=== PATIENT | male | born 1955 | race Caucasian/White ===

== ENCOUNTER 2017-10-24 10:22 | Emergency (ER) | payer BC, SELFPAY ==
[2017-10-24 10:31] VITALS: BP 136/84; PULSE 63; RESP 16; TEMP 37; O2SAT 96
--- NOTE | 2017-10-24 10:38 | DI.RPTCT_ITS ---
SYMPTOM/DIAGNOSIS: FALL, LOWER BACK PAIN LUMBOSACRAL SPINE CT 10/24 CT examination of the lumbosacral spine was performed utilizing multislice imaging and multiplanar reconstruction. No fracture identified. Mild hypertrophic degenerative chanaes of he facet joints and vertebral end plates are noted throughout. No spondylolysis or spondylolisthesis. There appear to be moderate disc bulges at L4-5 and L5-S1 No definite disc herniation seen by CT criteria, MR would be more sensitive in detecting small disc herniations. Incidental note is made of bilateral renal nonobstructing calculi. Abdominal aorta is of normal diameter. No retroperitoneal adenopathy seen. CONCLUSION: No evidence of lumbar spine fracture. Bilateral nonobstructing renal calculi noted
--- NOTE | 2017-10-24 10:38 | ED.GENADUL ---
Disposition Clinical Impression: Acute low back pain due to trauma Disposition: HOME Condition: Stable Instructions: Contusion in Adults (ED) Additional Instructions: Your cat scan did not show any broken bones you can take 1000mg tylenol and 600mg ibuprofen every 6 hours for pain as needed if you have severe worsening of pain, or new pain such as chest pain or difficulty breathing return to the emergency department. If the pain continues next week see your primary care provider Medical Decision Making - Radiology Data Radiology results: report reviewed, image reviewed - Medical Decision Making pt here after a fall 8 days ago with continued midline lower back pain, will obtain imaging to eval for fx. Has no abdominal tenderness or any other pain elsewhere requiring imaging. The pain started after a fall, has no fevers, chills, ivdu, and no saddle anesthesia so doubt sea or cauda equina or osteo pt remains stable without any new symptoms. CT shows no acute fractures on my read or read per Dr. Morse. Will d/c home, advised f/u with pcp and return precautions given - Differential Diagnosis contusion, sprain, fx History of Present Illness - General Chief complaint: Nk/Back Pain Stated complaint: LOWER BACK PAIN Time Seen by Provider: 10/24/17 10:34 Source: patient Mode of arrival: ambulatory Limitations: no limitations - History of Present Illness Initial comments: 61 yo male comes in with lower back pain. 8 days ago he was on a ladder about 8 feet up and fell backwards landing on his back. Denies any loc, has had lower back pain since then so came here for an eval. Denies headache, neck pain even on rom and n ochest pain or sob. He has midline lumbar pain without stepoffs, no cva tenderness, and no abdominal tenderness, full rom of the extremities without pain and ambulating with normal gait and no saddle anesthesia and denies urinary retention Complaint: lower back pain Onset/Timin -: days(s) Location: back Improves with: none Worsens with: none Associated Symptoms: denies other symptoms - Related Data Niacin 2 tab PO DAILY tab 06/26/12 Diclofenac Sodium 75 mg PO BID #180 tab-cap 12/25/16 Sildenafil [Viagra] 1 tab PO PRN #6 tab 12/25/16 Minocycline HCl 50 mg PO BID #60 tab-cap 08/09/17 Allergies Allergy/AdvReac Type Severity Reaction Status Date / Time No Known Allergies Allergy Unverified 10/24/17 11:11 Review of Systems Constitutional: denies: chills, fever Respiratory: denies: shortness of breath Cardiovascular: denies: chest pain Gastrointestinal: denies: abdominal pain, nausea, vomiting Musculoskeletal: back pain Skin: denies: rash Comment: All other systems reviewed and negative Past Medical History - Past Medical History Medical history: hyperlipidemia - Social History Alcohol use: none Drug use: none General Exam - General Limitations: no limitations General appearance: alert, in no apparent distress - Head Head exam: Present: atraumatic, normocephalic - Eye Eye exam: Present: normal apperance - ENT ENT exam: Present: mucous membranes moist - Neck Neck exam: Present: normal inspection, full ROM. Absent: tenderness - Respiratory Respiratory exam: Absent: respiratory distress - Cardiovascular Cardiovascular Exam: Present: regular rate - GI/Abdominal GI/Abdominal exam: Present: soft. Absent: distended, tenderness, guarding, rebound, rigid - Extremities Exam Extremities exam: Present: full ROM. Absent: pedal edema, calf tenderness - Back Exam Back exam: Present: normal inspection, vertebral tenderness. Absent: CVA tenderness (R), CVA tenderness (L) - Neurological Exam Neurological exam: Present: alert, oriented X3, normal gait. Absent: motor sensory deficit - Psychiatric Psychiatric exam: Present: normal affect - Skin Skin exam: Present: warm Course Vital Signs - 24 hr 10/24/17 10:31 Temperature 98.6 F Pulse 63 Respiratory 16 Rate Blood Pressure 136/84 Pulse Oximetry 96
[2017-10-24 12:55] VITALS: BP 115/76; PULSE 64; RESP 16; TEMP 36.7; O2SAT 96
== END 2017-10-24 12:58 | disposition home or self-care (01) ==
PROVIDERS: Emergency Provider Emergency Medicine; PCP Family Medicine
DX: M54.5 Low back pain (principal); W11.XXXA Fall on and from ladder, initial encounter
CPT/HCPCS: 99284; 72131

== ENCOUNTER 2018-01-29 16:25 | Emergency (ER) | payer BC, SELFPAY ==
[2018-01-29 16:29] VITALS: BP 156/88; PULSE 72; RESP 16; TEMP 36.4; O2SAT 97
--- NOTE | 2018-01-29 16:51 | W.ED.GENAD ---
Discharge Plan Disposition Patient Disposition: HOME Condition: Good Discharge Details Chief Complaint: Laceration Clinical Impression: Laceration of hand, left Primary Care Provider: Avi Puga ED Provider: Jeffrey Fernandez [place] Meds and New Rx's Prescriptions: No Action niacin 50 MG tablet 2 tab PO DAILY RF: 0 sildenafil [Viagra] 100 MG tablet 1 tab PO PRN Qty: 6 RF: 3 diclofenac sodium 75 MG tablet,delayed release (DR/EC) 75 mg PO BID Qty: 180 RF: 3 minocycline 50 mg capsule 50 mg PO BID Qty: 60 RF: 2 Discharge Instructions Instructions: Laceration (ED) Additional Instructions: have the sutures removedin 7-10 days if redness spreads away from the wound, you have yellow/white discharge for wound or severe pain return to the emergency department Medical Decision Making pt was using a saw and sustained a laceration to left palm, denies loc or falls. HAs 2cm laceration to mid palm. Intact sensation and full rom of the wrist and fingers so doubt tendon injury. Will close with sutures, up date tetanus and d/c home Differential Diagnosis laceration, abrasion, contusion HPI General Mode of arrival: ambulatory. Date/Time Provider Initiated Documentation: 01/29/18 16:28. Limitations to Documentation: no limitations. Information obtained by: patient. History of Present Illness 62 year old M presents to the emergency department with the chief complaint of left palm laceration, described as moderate, Quality is described as aching, and is localized to the left and upper extremity. Patient reports no radiation. Patient started experiencing this hour(s) (1) and it has been constant. No relieving factors improve symptom(s), No exacerbating factors reported . Patient notes no other symptoms.. Patient did receive the following treatments prior to arrival, none Related Data Home Medications Medication Instructions Recorded Confirmed niacin 2 tab PO DAILY tab 06/26/12 01/29/18 diclofenac sodium 75 mg PO BID #180 tab-cap 12/25/16 sildenafil [Viagra] 1 tab PO PRN #6 tab 12/25/16 01/29/18 minocycline 50 mg PO BID #60 tab-cap 01/02/18 01/29/18 Previous Rx's Medication Instructions Recorded diclofenac sodium 75 mg PO BID #180 tab-cap 12/25/16 sildenafil [Viagra] 1 tab PO PRN #6 tab 12/25/16 minocycline 50 mg PO BID #60 tab-cap 01/02/18 Allergies Allergy/AdvReac Type Severity Reaction Status Date / Time No Known Allergies Allergy Unverified 01/29/18 16:31 General Stated Complaint: Laceration FARHANA: 4 Review of Systems Review of Systems All systems reviewed & are unremarkable except as noted in HPI and below Constitutional Denies chills, Denies fever(s) and Denies weakness Eyes Denies loss of vision ENT Denies change in voice Cardiovascular Denies chest pain and Denies dyspnea Respiratory Denies dyspnea Gastrointestinal Denies abdominal pain, Denies nausea and Denies vomiting Integumentary/Breasts Denies rash Neurologic Denies loss of vision and Denies weakness PFSH Family History Mother Personal history of malignant neoplasm Father Heart disease Sister No problems noted. Brother No problems noted. Grandmother Personal history of malignant neoplasm Medical History Acne Erectile dysfunction Social History Smoking/Tobacco Use Status: Former Tobacco Use Surgical History Colonoscopy - IV Sedation (01/21/16) Meniscectomy (~2008) Exam Const General: no acute distress Orientation: alert [facility] Head: normal to inspection Ears: external ears normal General nose exam: external nose normal Mouth: moist mucous membranes Eyes General: appearance normal, both eyes and all related structures Neck Neck: normal visual inspection Resp Effort & Inspection: normal respiratory effort and able to speak in complete sentences Cardio Rate: regular rate Skin General skin exam: no rashes or lesions noted Neuro General: alert and oriented x3 Extrem General: full ROM and normal capillary refill Psych Mental Status: mental status grossly normal Course Vital Signs Temperature 36.4 C L 01/29/18 16:29 Pulse 72 01/29/18 16:29 Respiratory Rate 16 01/29/18 16:29 Blood Pressure 156/88 H 01/29/18 16:29 Pulse Oximetry 97 01/29/18 16:29 Temperature 36.4 C L 01/29/18 16:29 Temperature Source Temporal Artery Scan 01/29/18 16:29 Pulse 72 01/29/18 16:29 Respiratory Rate 16 01/29/18 16:29 Respiratory Effort 01/29/18 16:33 Blood Pressure 156/88 H 01/29/18 16:29 Pulse Oximetry 97 01/29/18 16:29 Oxygen Delivery Method Room Air 01/29/18 16:29 Oxygen Flow Rate 0 01/29/18 16:29 Procedures Laceration Laceration 1: Site: upper extremity and hand Side (If applicable): left Size (cm): 2 Description: linear Depth: simple, single layer Local Anesthetic: Lidocaine 1% Amount of anesthesia used (mL): 6 Pre-repair: wound explored and irrigated extensively Skin layer closed with: vicryl Size (cm): 5-0 Number of sutures: 4 Technique: simple, interrupted
== END 2018-01-29 17:16 | disposition home or self-care (01) ==
LOC: ER 17:14
PROVIDERS: Emergency Provider Emergency Medicine; PCP Family Medicine
DX: S61.412A Laceration without foreign body of left hand, initial encounter (principal); W27.0XXA Contact with workbench tool, initial encounter
CPT/HCPCS: 12001; 90471

== ENCOUNTER 2019-07-11 08:40 | Outpatient (CLI) | payer BC, SELFPAY ==
[2019-07-12 13:59] LABS: COVID-19 RT-PCR UVMMC Result Negative (Negative)
== END 2019-07-11 09:00 ==
PROVIDERS: PCP Family Medicine; Visit Provider Family Medicine
DX: R05 Cough (principal)
CPT/HCPCS: U0003

== ENCOUNTER 2020-02-26 09:10 | Outpatient (CLI) | payer BC, SELFPAY ==
--- NOTE | 2020-02-26 08:30 | DI.RAD_ITS ---
EXAM: XR TIB/FIB LT CLINICAL HISTORY: L lower leg pain. TECHNIQUE: 2D digital imaging was performed. COMPARISON: No exams were available for comparison FINDINGS: No evidence of fracture. No significant osseous lesions. No radiopaque body. Talar dome appears un remarkable. IMPRESSION: No significant findings. DATA REPOSITORY: RADIATION DOSE DELIVERED:
== END 2020-02-26 09:30 ==
PROVIDERS: PCP Family Medicine; Referring Provider Family Medicine; Visit Provider Physician Assistant
DX: M79.662 Pain in left lower leg (principal)
CPT/HCPCS: 73590

== ENCOUNTER 2020-03-17 03:08 | Outpatient (CLI) | payer BC, SELFPAY ==
--- NOTE | 2020-03-17 06:45 | DI.MRI_ITS ---
EXAM: MR LOWER EXTREMITY LT WO CLINICAL HISTORY: LOWER LEG PAIN,FASCIAL DEFECT,M62.9 TECHNIQUE: Multiplanar multisequence MRI was performed. COMPARISON: CR XR TIB/FIB LT from 02/26/2020 FINDINGS: MARROW:There is mild subcutaneous signal abnormality related to the tissues just anterior to the tibi al cortex in the upper-mid diaphysis region. There is a no evidence of intramedullary marrow edema n o distinct fracture line. There are no significant osseous lesions. There is no abnormal intraosseous signal in the visualized fibula. MUSCLES: There is no evidence of abnormal signal nor mass in the visualized muscles. EXTRAMUSCULAR SOFT TISSUES: No abnormal signal, mass, or fluid collection. OTHER: None. IMPRESSION: 1. As above. Findings are consistent with tibial stress reaction. Correlation with any clinical fin dings of ???moreno splints??? recommended. There is, however, no evidence of actual stress fracture. DATA REPOSITORY:
== END 2020-03-17 03:28 ==
PROVIDERS: PCP Family Medicine; Visit Provider Student in an Organized Health Care Education/Training Program
DX: M79.662 Pain in left lower leg (principal); M62.89 Other specified disorders of muscle
CPT/HCPCS: 73718

== ENCOUNTER 2020-04-21 12:32 | Day surgery (SDC) | payer BC, SELFPAY ==
[2020-04-21 12:49] VITALS: BP 135/86; PULSE 71; RESP 16; TEMP 36.5; O2SAT 96
[2020-04-21] MEDS: Lactated Ringers 1,000 ML 80 ML IV (13:12)
--- NOTE | 2020-04-21 13:15 | PDOC.DSDIS_ITS ---
Discharge Plan Disposition Patient Disposition: HOME Condition: Good Discharge Details Reason For Visit: Fasciotomy left lower leg Attending Provider: Triston Burden Primary Care Provider: Avi Puga Home Meds and New Rx's Prescriptions: New ibuprofen 600 mg tablet 600 mg PO TID PRN (Reason: pain) Qty: 30 RF: 0 acetaminophen 500 mg capsule 1,000 mg PO Q8H PRN PRNQty: 90 RF: 0 Continued minocycline 50 mg capsule 50 mg PO BID Qty: 60 RF: 6 Discontinued acetaminophen [Tylenol Extra Strength] 500 mg tablet 1,500 mg PO HS PRNRF: 0 diclofenac sodium 75 mg tablet,delayed release (DR/EC) 75 mg PO BID Qty: 180 RF: 3 Discharge Instructions Additional Instructions: Fasciotomy Discharge Instructions Activity: You may bear weight as tolerated, using crutches only for support/c omfort. You should apply ice to help with swelling and elevate when possible (especially in the first few days). Dressings: The dressing may come down after one week. You may shower after 48 hours. Recommend covering the dressing with cling wrap. Medications: - Rarely does this require any stronger pain medications. - Recommend to take up to 1000mg of Acetaminophen (Tylenol) and 600mg of Ibuprofen (Advil) every 8 hours as needed. These larger strength tablets were called in but you also may use [id number]. Follow-up: 10-14 days Referrals: Triston Burden MD [ [facility] STAFF PHYSICIAN] - Equipment/Supplies: Partial Weight Bearing Crutches Activity:: Activity as Tolerated Shower/Bathe:: 48 hours and Cover Diet:: As Tolerated Discharge Orders Discharge Orders: Discharge Order (Routine); Ordered 04/21/20 Ordered By: Sohan Mata DS: Diagnosis Discharge Diagnosis (1) Fascial defect: Status: Acute
[2020-04-21] MEDS: ceFAZolin 2 GM/50 ML BAG IVPB (14:41)
[2020-04-21] MEDS: EPINEPHrine 1 MG/ML AMP pres-free (14:50)
[2020-04-21] MEDS: Bupivacaine 0.25% Pres-Free 30 ML VIAL (14:50)
[2020-04-21 15:45] VITALS: BP 116/74; PULSE 66; RESP 16; TEMP 36.3; O2SAT 96
--- NOTE | 2020-04-22 07:44 | ROE_ITS ---
Date of service: 04/22/20 Time of Service: 14:44 Operative Note Operative Note DATE OF PROCEDURE: 04/22/20 PRE-OP DIAGNOSIS: Left Leg Traumatic Fascial Defect POST-OP DIAGNOSIS: same PROCEDURE: Left Leg Anterior Compartment Fasciotomy SURGEON: Triston Burden JET DYEING MACHINE OPERATOR: Lina Kaplan ANESTHESIA: MAC ESTIMATED BLOOD LOSS: 0 PATHOLOGY: none sent TOURNIQUET TIME: 0 COMPLICATIONS: None Patient was transported to: same day Patient's condition: stable Indications: Sathya is a 64yo male who has had some chronic pain and deformity to the anterior left leg for years since a traumatic injury with a log on his left leg. He has tried a host of treatment options but continues to have swelling and pain. Clinical exam and MRI confirmed a fascial injury and bulging anterior compartment within those defects. Given this finding, I offered a fasciotomy to fully release the compartment, rather than attempt a fascial closure due to the increased complication rate of closure versus release. I discussed the risks of the procedure to include bleeding, pain, stiffness, deformity or increase in muscle bulging, damage to nerves and vessels, blood clot. Despite these risks, he elected to proceed. Findings: There was a large defect of the anterior compartment with some pseudofascia within this defect but two complete defects within the pseudofascia. A complete anterior compartment fasciotomy was performed. Procedure Description: Sathya was greeted in the preoperative holding area. His identity was confirmed and the correct side was identified and marked. The history and physical was updated and the consent was reviewed with the patient was signed. Braden was taken back to the operating room and then placed in the supine position. The left leg was prepped with Chloraprep and draped in a standard fashion. Prophylactic antiobiotics in the form of Cefazolin were administered. A timeout was performed for safe surgery. The fascial defect was palpable and marked on the skin and then the proposed incision was marked. The area was anesthetized with 0.5% Bupivacaine with Epinephrine. The skin was then incised sharply through the skin and subcutaneous tissues. The anterior fascia was identified. The defect was palpated and measured about 7cm in total length and by about 2.5cm away from the tibia at its greatest width. Within this defect there was a thinner pseudo-fascia which was obviously much thinner than the anterior compartment fascia. Within this fascia there were two complete defects about 1cm in diameter. There was obvious muscle herniating through these defects. I then bluntly dissected on top of the fascia, just lateral to the tibial spine. Using a freer elevator, I pushed the muscle away from the fascia and had visualization of both sides of the fascia starting at the fascia herniation and moving distally. I was able to use a [place] scissor to release the anterior compartment to the distal 1/3 of the compartment. This was then repeated moving proximally with the same visualization of both sides of the fascia. This was released all the way to the proximal tibial flare. The muscle was viable and showed no signs of disease or atrophy. Some of the deeper tissues were injected with additional Bupivacaine. The wound was then thoroughly irrigated. The deep tissue was closed with 3-0 Vicryl. The skin and subcutaneous tissue was closed with a running subcuticular 3-0 Monocryl. The wound was dressed with a Mepilex dressing. He tolerated the procedure well and was transferred back to the Same Day area in a stable condition.
== END 2020-04-21 16:05 | disposition home or self-care (01) ==
PROVIDERS: PCP Family Medicine; Visit Provider Student in an Organized Health Care Education/Training Program
PROC: (CPT 27600; principal; 2020-04-21 12:45)
DX: M62.89 Other specified disorders of muscle (principal); S86.29 Other injury of muscle(s) and tendon(s) of anterior muscle group at lower leg level; W23.0XXS Caught, crushed, jammed, or pinched between moving objects, sequela
CPT/HCPCS: 27600; J0171; J0690; J1885; J2001; J2250; J2405; J2704

== ENCOUNTER 2021-04-05 02:48 | Outpatient (CLI) | payer BC, SELFPAY ==
--- NOTE | 2021-04-05 06:45 | DI.RAD_ITS ---
Exam(s) XR SHOULDER RT COMPLETE 2+V EXAM: XR SHOULDER RT COMPLETE 2+V CLINICAL HISTORY: right shoulder pain x 2 yrs,m25.511. TECHNIQUE: 2D digital imaging was performed of the right shoulder. Six images were obtained. AP, G rashey, Y-view and axillary views were obtained. COMPARISON: No exams were available for comparison FINDINGS: BONES: No acute fracture is present. No bony destructive lesion is seen. JOINTS: No dislocation present. Mild hypertrophic changes are seen at the acromioclavicular joint. SOFT TISSUE: Tiny calcification is seen adjacent to the humeral head suspicious for calcific tendinit is. IMPRESSION: Mild degenerative changes of the right shoulder. DATA REPOSITORY: RADIATION DOSE DELIVERED:
== END 2021-04-05 03:08 ==
PROVIDERS: PCP Family Medicine; Visit Provider Family Medicine
DX: M25.511 Pain in right shoulder (principal); M19.011 Primary osteoarthritis, right shoulder
CPT/HCPCS: 73030

== ENCOUNTER 2021-04-05 13:29 | Outpatient (CLI) | payer BC, SELFPAY ==
[2021-04-05] MEDS: Albuterol HFA 18 GM 200 PUFF INH IH (14:29)
[2021-04-05] MEDS: Inhaler, Assist Device 1 EACH MC (14:30)
--- NOTE | 2021-04-06 10:53 | W.PFT ---
Date of service: 04/05/21 Time of Service: 12:58 Pulmonary Function Test Result Requesting Provider Jeri Padilla Indications: Chronic cough Interpretation Spirometry: There is mild airflow limitation. There is no significant bronchodilator response. Lung Volumes: The lung volumes are normal, with the exception of some hyperinlation. Diffusion Capacity: The diffusing capacity is normal. Airway Pressure: Normal airways resistance Impression Mild airflow obstruction with hyperinflation and a normal diffusion. This may represent chronic bronchitis (COPD) or uncontrolled asthma in the correct clinical setting. Clinical Correlation therefore is recommended.
== END 2021-04-05 13:30 | disposition home or self-care (01) ==
LOC: RT 13:29
PROVIDERS: PCP Family Medicine; Visit Provider Family Medicine
DX: R05.3 Chronic cough (principal); Z87.891 Personal history of nicotine dependence; R94.2 Abnormal results of pulmonary function studies; Z77.120 Contact with and (suspected) exposure to mold (toxic)
CPT/HCPCS: 94060; 94726; 94729

== ENCOUNTER 2021-08-02 09:48 | Outpatient (CLI) | payer BC, SELFPAY ==
--- NOTE | 2021-08-02 09:30 | DI.RAD_ITS ---
Exam(s) XR SHOULDER LT COMPLETE 2+V EXAM: XR SHOULDER LT COMPLETE 2+V CLINICAL HISTORY: pain TECHNIQUE: COMPARISON: CR XR SHOULDER RT COMPLETE 2+V from 04/05/2021 FINDINGS: Two views were obtained. The cartilaginous joint space of the glenohumeral joint appears fairly well maintained. Mild to moderate marginal osteophyte formation of the glenoid and humeral head noted. There are also mild hypertrophic degenerative changes of the AC joint. There are soft tissue calcifications seen adjacent to the metaphyseal diaphyseal junction of the ashwin deanne suggestive of calcific peritendinitis. IMPRESSION: RADIATION DOSE DELIVERED: Total DLP
== END 2021-08-02 09:49 | disposition home or self-care (01) ==
LOC: DIORS 09:48
PROVIDERS: PCP Family Medicine; Referring Provider Family Medicine; Visit Provider Physician Assistant Surgical
DX: M25.512 Pain in left shoulder; M19.012 Primary osteoarthritis, left shoulder; M75.32 Calcific tendinitis of left shoulder
CPT/HCPCS: 73030

== ENCOUNTER 2022-02-08 17:27 | Emergency (ER) | payer BC, SELFPAY ==
--- NOTE | 2022-02-08 17:30 | DI.CT_ITS ---
Exam(s) CT RENAL COLIC WO EXAM: CT RENAL COLIC WO INDICATION: right flank pain, r/o stone. COMPARISON: No exams were available for comparison TECHNIQUE: CT examination was performed without contrast administration. FINDINGS: Images obtained through the lung bases are unremarkable. Visualized portions of the liver and splee n appear intact. Visualized portions of the pancreas are unremarkable. Gallbladder and bile ducts are CT normal. Abdominal aorta is of normal diameter. No significant abdominal wall hernia. No significant abdominal or pelvic adenopathy. Small left adrenal adenoma noted, fatty attenuation period. The kidneys are normal in size and shape. There are small bilateral renal calculi which are nonobstr ucting period. No ureteral dilatation or calcification identified. Urinary bladder is unremarkable in appearance. IMPRESSION: Small bilateral nonobstructing renal calculi noted. No evidence of ureteral calcification or urinary tract obstruction.. RADIATION DOSE DELIVERED: 1,094.03mGy.cm DLP 1,094.03mGy.cm Total DLP DATA REPOSITORY: All CT scans at this facility are submitted to the National Radiology Data Registry (NRDR) Dose Index Registry (DIR) with the [employer] ([employer]). RADIATION OPTIMIZATION: All CT scans at this facility use at least one of these dose optimization te chniques: automated exposure control; mA and/or kV adjustment per patient size (includes targeted exa ms where dose is matched to clinical indication); or iterative reconstruction.
[2022-02-08 17:34] VITALS: BP 176/86; PULSE 80; RESP 20; TEMP 37.1; O2SAT 97
--- NOTE | 2022-02-08 17:41 | W.ED.GENAD ---
Discharge Plan Disposition Patient Disposition: Home Condition: Good Discharge Details Clinical Impression: Acute right flank pain, Hematuria Primary Care Provider: Jeri Padilla ED Provider: Yannick Olsen Home Meds and New Rx's Prescriptions: New tamsulosin [Flomax] 0.4 mg capsule 0.4 mg PO DAILY Qty: 5 0RF No Action budesonide-formoterol [Symbicort] 80-4.5 mcg/actuation HFA aerosol inhaler 2 puff inhalation BID Qty: 10 12RF diclofenac sodium [Voltaren Arthritis Pain] 1 % gel 4 g topical QID PRN (Reason: pain) Qty: 100 4RF Rx Instructions: Apply to affected area four times per day as needed minocycline 50 mg capsule 50 mg PO BID Qty: 60 6RF trazodone 50 mg tablet 25 mg PO QHS PRN (Reason: sleep) Qty: 30 1RF ibuprofen 600 mg tablet 600 mg PO TID PRN (Reason: pain) Qty: 30 0RF acetaminophen 500 mg capsule 1,000 mg PO Q8H PRN PRNQty: 90 0RF Discharge Instructions Instructions: Kidney Stones (ED), Flank Pain (ED) Additional Instructions: At this time your work-up is very reassuring. There is a high suspicion that you have had a small kidney stone that is passed or a kidney stone that is too small to see. Please take the Flomax as directed. Please take Tylenol and Motrin as needed for pain. Please use the urine strainer to strain for your kidney stone. If you notice any worsening of your symptoms, or any new symptoms such as vomiting, diarrhea, fever, chills, shortness of breath, chest pain, numbness, weakness, or fainting , please return immediately to the emergency department for reevaluation. Please follow up with your primary care provider as soon as possible for reassessment and reevaluation. As always, it was a pleasure participating in your medical care today. Referrals: Jeri Padilla MD [Primary Care Provider] - Medical Decision Making 66-year-old male with a past medical history of arthritis, old tobacco abuse, high cholesterol, on chronic minocycline for acne presents today for evaluation of right flank pain. Patient states that initially there was epigastric and right upper quadrant pain that then radiated down to his right flank, and is now in his right lower abdomen. He describes it as an achy sensation. He denies any urinary complaints. He denies any vomiting or diarrhea. He did take Tylenol which slightly improved his symptoms. No chest pain, chest heaviness, or chest tightness. No other complaints at this time. No other modifying factors. No history of kidney stones. M demonstrates well-appearing male, no significant abdominal pain or flank or CVA tenderness on exam. No guarding or rebound. Symptoms are low in the abdomen and inconsistent with cardiac etiology. Differential is highest for urolithiasis, less likely appendicitis. We will do CT scan, rehydrate, monitor closely and reassess. Patient does not want anything for pain at this time. 7:14 PM Laboratory work-up shows a stable hemoglobin no white count, urinalysis shows 10-20 RBCs, no WBCs, negative nitrites, negative leuk esterase. Patient still feels well, mild achiness on the right flank going down to the right groin. CT scan shows no evidence of acute process of significance. He does have some kidney stones that are present though but no urolithiasis in the ureter. Patient otherwise feels stable. With no evidence of infection, pain well controlled, patient is stable for discharge. Patient will be discharged with Flomax, recommend NSAIDs at home and continued hydration. Discussed red flags which to return. I have extensively reviewed the treatment plan and discharge instructions with the patient. I have addressed all patient concerns at this time. The patient was made aware of what symptoms to monitor for that would warrant a return to the emergency department. Discussed the plan with the patient, they demonstrate verbal understanding and agreement with our assessment and plan at this time. The documentation in this chart was dictated using Kartela dictation software. Please excuse any dictation errors. FINDINGS: Liver: Fatty liver with no gross masses on noncontrast imaging. Focal fatty sparing in the liver. Gallbladder and bile ducts: No calcified stones. No ductal dilation. Pancreas: No gross pathology in the pancreas on noncontrast imaging. Spleen: No splenomegaly or focal lesions. Adrenal glands: Benign small left adrenal adenoma. Normal right adrenal gland. Kidneys and ureters: Subcentimeter nonobstructive right nephrolithiasis. Punctate nonobstructive left nephrolithiasis. Stomach and bowel: Colonic diverticulosis without diverticulitis. No gross pathology in the small bowel without IV contrast. Appendix: No evidence of appendicitis. Intraperitoneal space: No free air. No significant fluid collection. Vasculature: No abdominal aortic aneurysm. Lymph nodes: No significantly enlarged lymph nodes. Urinary bladder: Unremarkable as visualized. Reproductive: Unremarkable as visualized. Bones/joints: Degenerative changes in the spine. No acute fracture or subluxation. Soft tissues: Small fat-containing umbilical hernia. IMPRESSION: 1. Subcentimeter nonobstructive right nephrolithiasis. 2. Punctate nonobstructive left nephrolithiasis. 3. Incidental findings as described. Thank you for allowing us to participate in the care of your patient. Dictated and Authenticated by: Ml Bullard MD 02/08/2022 6:48 PM Eastern Time ([place] & [place]) Sign Out No HPI General Date/Time Provider Initiated Documentation: 02/08/22 17:32. HPI Narrative: 66-year-old male with a past medical history of arthritis, old tobacco abuse, high cholesterol, on chronic minocycline for acne presents today for evaluation of right flank pain. Patient states that initially there was epigastric and right upper quadrant pain that then radiated down to his right flank, and is now in his right lower abdomen. He describes it as an achy sensation. He denies any urinary complaints. He denies any vomiting or diarrhea. He did take Tylenol which slightly improved his symptoms. No chest pain, chest heaviness, or chest tightness. No other complaints at this time. No other modifying factors. No history of kidney stones. Related Data Home Medications Medication Instructions Recorded Confirmed acetaminophen 500 mg capsule 1,000 mg PO Q8H PRN PRN #90 caps 04/21/20 02/08/22 ibuprofen 600 mg tablet 600 mg PO TID PRN pain #30 tabs 04/21/20 02/08/22 Symbicort 80 mcg-4.5 mcg/actuation 2 puff inhalation BID #10 grams 07/01/21 02/08/22 HFA aerosol inhaler (budesonide-formoterol) diclofenac sodium 1 % topical gel 4 g topical QID PRN pain #100 grams 08/30/21 02/08/22 (Voltaren Arthritis Pain) minocycline 50 mg capsule 50 mg PO BID #60 tab-caps 10/13/21 02/08/22 trazodone 50 mg tablet 25 mg PO QHS PRN sleep #30 tabs 12/05/21 02/08/22 tamsulosin 0.4 mg capsule (Flomax) 0.4 mg PO DAILY #5 caps 02/08/22 Previous Rx's Medication Instructions Recorded acetaminophen 500 mg capsule 1,000 mg PO Q8H PRN PRN #90 caps 04/21/20 ibuprofen 600 mg tablet 600 mg PO TID PRN pain #30 tabs 04/21/20 Symbicort 80 mcg-4.5 mcg/actuation 2 puff inhalation BID #10 grams 07/01/21 HFA aerosol inhaler (budesonide-formoterol) diclofenac sodium 1 % topical gel 4 g topical QID PRN pain #100 grams 08/30/21 (Voltaren Arthritis Pain) minocycline 50 mg capsule 50 mg PO BID #60 tab-caps 10/13/21 trazodone 50 mg tablet 25 mg PO QHS PRN sleep #30 tabs 12/05/21 tamsulosin 0.4 mg capsule (Flomax) 0.4 mg PO DAILY #5 caps 02/08/22 Allergies Allergy/AdvReac Type Severity Reaction Status Date / Time No Known Allergies Allergy Verified 02/08/22 17:45 General Stated Complaint: Abd Prob FARHANA: 3 Review of Systems All systems reviewed & are unremarkable except as noted in HPI and below PFSH All Active Problems (Updated 02/08/22 @ 19:08 by Yannick Olsen DO) Acute right flank pain (Acute) Hematuria (Acute) Rotator cuff impingement syndrome of left shoulder (Acute) Rotator cuff impingement syndrome of right shoulder (Acute) Bursitis of right shoulder (Acute) Elevated BP without diagnosis of hypertension (Acute) Arthritis of left acromioclavicular joint (Acute) Excessive cerumen in both ear canals (Chronic) Asymmetrical sensorineural hearing loss (Chronic) Arthritis of right acromioclavicular joint (Chronic) Chronic bronchitis (Chronic) Hearing impairment (Chronic) Cystic acne vulgaris (Chronic) back of neck, face, cystic nodular acne managed for several years with minocycline Low HDL (under 40) (Chronic) Medical History Erectile dysfunction History of alcoholism quit in 1994 History of COVID-19 (~01/2021) History of tobacco use quit in 1996; 40 pack-yr history Knee pain right; recurrent effusion; arthroscopy-torn meniscus; chronic ache Umbilical hernia Surgical History Fascial defect left lower leg S/P fasciotomy: 04/21/2020 Status post meniscectomy Family History Mother Lung cancer Father Heart disease Sister No problems noted. Brother No problems noted. Paternal Grandmother Cancer Maternal Grandmother No problems noted. Maternal Grandfather No problems noted. Paternal Grandfather No problems noted. Sister No problems noted. Brother No problems noted. 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 Pets and animals: Yes Pets and animals: cat(s) Sexually active: No Do you think of yourself as: straight/heterosexual Current gender identity: male What is your relationship status?: How often do you talk on the phone with friends or family?: three or more times per week How often do you get together with friends or relatives?: once per week How often do you attend shinto or adventism services?: 4 or more times per year Do you belong to any clubs or organized social groups?: no Panel score (0-1 are the most socially isolated patients): 3 What type of physical activity do you participate in: walking Duration: 60-90 minutes/day Frequency: 1-2 times per week Chloe/Voodoo: Congregation Special chloe needs: No Seatbelt use: sometimes Helmet use: No Drive intox or ride w/intox car pick up driver: No Do you feel safe at home: Yes Do you feel safe in your relationship?: Yes Victim of physical abuse: No Victim of emotional abuse: No Victim of sexual abuse: No Would you like helpful sources: No Exam Narrative Exam Narrative: 1.Const: Well-nourished, Well-developed, appearing stated age 2.Eyes: PERRL, no conjunctival injection, and symmetrical lids. 3.ENT: Atraumatic external nose and ears. Moist MM. Neck: Symmetric, trachea midline, No thyromegaly. 4.CVS: +S1/S2, No murmurs or gallops. Peripheral pulses 2+ and equal in all extremities. Brisk capillary refill in all extremities. 5.RESP: Unlabored respiratory effort. Clear to auscultation bilaterally. No wheezes rales or rhonchi 6.GI: Soft, Nontender/Nondistended, No hepatosplenomegaly. No guarding or rebound. No significant flank or CVA tenderness. 7.MSK: Normocephalic/Atraumatic, Extremities w/o deformity or ttp No cyanosis or clubbing, Normal movement of all extremities 8.Skin: Warm, Dry. No rashes or lesions. 9.Neuro: strategic marketing manager II-XII grossly intact. Sensation grossly intact, no focal neurologic deficits. 10.Psych: (AAO) x3. Appropriate mood and affect Course Vital Signs Vital signs: Vital Signs Temperature 37.1 C 02/08/22 17:34 Pulse 80 02/08/22 17:34 Respiratory Rate 20 02/08/22 17:34 Blood Pressure 176/86 H 02/08/22 17:34 Pulse Oximetry 97 02/08/22 17:34 Temperature 37.1 C 02/08/22 17:34 Temperature Source Oral 02/08/22 17:34 Pulse 80 02/08/22 17:34 Respiratory Rate 20 02/08/22 17:34 Respiratory Effort Non-Labored 02/08/22 17:39 Blood Pressure 176/86 H 02/08/22 17:34 Pulse Oximetry 97 02/08/22 17:34 Oxygen Delivery Method Room Air 02/08/22 17:34 Oxygen Flow Rate 0 02/08/22 17:34 Pain Level 4 02/08/22 17:34
[2022-02-08 18:02] LABS: Bilirubin Negative (Negative); Blood Moderate (Negative); Clarity Clear (Clear); Glucose Negative (Negative); Ketones Negative (Negative); Leukocyte Esterase Negative (Negative); Nitrite Negative (Negative); Urobilinogen 0.2 EU/dL (Up TO 0.2)
[2022-02-08] MEDS: Normal Saline 1,000 ML 1000 ML IV (18:04)
[2022-02-08 18:07] LABS: Abs Immature Grans 0.02 10^3/uL (0.0-0.06); Absolute Basophil Count 0.06 10^3/uL (0.0-0.2); Absolute Eosinophil Count 0.28 10^3/uL (0.0-0.7); Absolute Lymphocyte Count 2.79 10^3/uL (1.2-3.4); Absolute Monocyte Count 0.84 10^3/uL (0.1-0.8); Absolute Neutrophil Count 4.73 10^3/uL (1.2-6.7); Basophils % 0.7; Eosinophils % 3.2; HCT 43.4 % (40.0-50.0); HGB 13.8 g/dL (13.5-17.5); Immature Grans % 0.2; MCH 29.1 pg (27.0-33.0); MCHC 31.8 % (32.0-36.0); MCV 91 fL (80-95); MPV 10.7 fL (8.0-11.0); Monocytes % 9.6; Neutrophils % 54.3; Platelet Count 320 10^3/uL (130-400); RBC 4.75 10^6/uL (4.36-5.78); RDW 12.8 % (11.8-14.1); RDW-SD 43.2 fL; WBC 8.72 10^3/uL (4.4-10.8)
[2022-02-08 18:12] LABS: Lipase 107 U/L (73-393)
[2022-02-08 18:13] LABS: Bacteria Rare HPF (Negative); C & S Indicated? No; Casts Negative LPF (Negative); Crystals Negative HPF (Negative); Epithelial Cells Rare HPF (Negative); Mucus Negative (Negative); WBC 0-2 HPF (0-5)
[2022-02-08 18:15] LABS: ALT 28 U/L (16-63); AST 22 U/L (15-37); Albumin 3.6 g/dL (3.4-5.0); Alkaline Phosphatase 89 U/L (46-116); Anion Gap 6.7 mmol/L (3-11); BUN 18 mg/dL (7-18); Bilirubin, Total 0.2 mg/dL (0.2-1.0); CO2 28.3 mmol/L (21.0-32.0); CREATININE 1.2 mg/dL (0.70-1.30); Calcium 8.7 mg/dL (8.5-10.1); Chloride 104 mmol/L (98-107); Estimated GFR 67.11 (mL/min/1.73m2); Glucose 145 mg/dL (74-106); Sodium 139 mmol/L (136-145); Total Protein 7.8 g/dL (6.4-8.2)
--- NOTE | 2022-02-08 18:49 | DI.VRAD_ITS ---
PROCEDURE INFORMATION: Exam: CT Abdomen And Pelvis Without Contrast Exam date and time: 02/08/2022 18:32 Age: 66 years old Clinical indication: Abdominal pain; Flank; Right; Additional info: Right flank pain, R/O stone TECHNIQUE: Imaging protocol: Computed tomography of the abdomen and pelvis without contrast. Radiation optimization: All CT scans at this facility use at least one of these dose optimization techniques: automated exposure control; mA and/or kV adjustment per patient size (includes targeted exams where dose is matched to clinical indication); or iterative reconstruction. COMPARISON: MR LOWER EXTREMITY LT WO 03/17/2020 09:10 FINDINGS: Liver: Fatty liver with no gross masses on noncontrast imaging. Focal fatty sparing in the liver. Gallbladder and bile ducts: No calcified stones. No ductal dilation. Pancreas: No gross pathology in the pancreas on noncontrast imaging. Spleen: No splenomegaly or focal lesions. Adrenal glands: Benign small left adrenal adenoma. Normal right adrenal gland. Kidneys and ureters: Subcentimeter nonobstructive right nephrolithiasis. Punctate nonobstructive left nephrolithiasis. Stomach and bowel: Colonic diverticulosis without diverticulitis. No gross pathology in the small bowel without IV contrast. Appendix: No evidence of appendicitis. Intraperitoneal space: No free air. No significant fluid collection. Vasculature: No abdominal aortic aneurysm. Lymph nodes: No significantly enlarged lymph nodes. Urinary bladder: Unremarkable as visualized. Reproductive: Unremarkable as visualized. Bones/joints: Degenerative changes in the spine. No acute fracture or subluxation. Soft tissues: Small fat-containing umbilical hernia. IMPRESSION: 1. Subcentimeter nonobstructive right nephrolithiasis. 2. Punctate nonobstructive left nephrolithiasis. 3. Incidental findings as described. Dictated and Authenticated by: Ml Bullard MD. Ordering:JOHN Lanier MD
[2022-02-08] MEDS: Tamsulosin 0.4 MG CAPCR PO (19:24)
[2022-02-08] MEDS: Ketorolac 15 MG/ML VIAL IVP (19:24)
[2022-02-08 19:25] VITALS: BP 153/93; PULSE 78; RESP 18; O2SAT 98
--- NOTE | 2022-02-09 17:38 | NUR.NOTE ---
Nursing Note: Accessed patient chart to determine how many EKG orders were in the chart from the ED. There was an outstanding EKG in ordered status. There are no EKG's in the [facility] system that are outstanding. EKG order was deleted.
== END 2022-02-08 19:23 | disposition home or self-care (01) ==
PROVIDERS: Emergency Provider Student in an Organized Health Care Education/Training Program; PCP Family Medicine
DX: R10.9 Unspecified abdominal pain (principal); R31.9 Hematuria, unspecified
CPT/HCPCS: 36415; 80053; 83690; 96361; 96374; 99284; 74176; 81003; 81015; 85025; J1885

== ENCOUNTER 2022-03-29 15:46 | Outpatient (CLI) | payer BC, SELFPAY ==
[2022-03-29 15:52] VITALS: BP 134/76; PULSE 73; RESP 20; TEMP 36.9; O2SAT 94
--- NOTE | 2022-03-29 16:00 | DI.RAD_ITS ---
Exam(s) XR PAIN CLINIC THORACIC SP 2V EXAM: XR PAIN CLINIC THORACIC SP 2V CLINICAL HISTORY: Dx: Intercostal Neuralgia TECHNIQUE: 2D and realtime digital imaging was performed. Radiologist not present. CONTRAST MATERIAL: None. COMPARISON: No exams were available for comparison FINDINGS: Fluoroscopy was provided for pain management therapy. Please refer to procedure report or details. Radiation Exposure Index: Ka,r=6.15 mGy IMPRESSION: As above. RADIATION DOSE DELIVERED:
[2022-03-29 17:07] VITALS: BP 155/89; PULSE 78; RESP 18; O2SAT 96
[2022-03-29] MEDS: Dexamethasone Sod. Phos./Pres-Free 10 MG/ML VIAL IJ (17:21)
[2022-03-29] MEDS: Lidocaine 2% Pres-Free 5 ML VIAL IJ (17:21)
[2022-03-29] MEDS: Bupivacaine 0.25% Pres-Free 30 ML VIAL IJ (17:22)
[2022-03-29] MEDS: Omnipaque 240 MG/ML 50 ML BTL IJ (17:22)
--- NOTE | 2022-03-29 18:46 | PDOC.PAIN_ITS ---
Date of service: 03/29/22 Time of Service: 17:00 Pain Clinic Procedure Note Procedure Note Procedure Note: Comments: I did evaluate his prior to the procedure. He has allodynia in the right T7 or T6 dermatomal distribution just below and at the bottom of the reagan rnum. There are no open wounds from his recent Shingles outbreak. There is some skin breakdown from patches he was wearing over the shingles area. We discussed treatment options at length. I recommended right T7 +/- T6 intercostal nerve blocks. He did consent. Intercostal Nerve Blocks Sathya Haile has been referred to the [facility] for lumbar/sacral medial branch blocks. COMMENTS: I previously evaluated him in the clinic and we were able to complete the procedure on the same day. Pre-procedure pain VAS was 8/10 to the right chest. Dx: Intercostal neuralgia Patient was interviewed and the medical record reviewed. There were no medical, pharmacologic, radiographic or other structural contraindications to attempting fluoroscopically guided intercostal nerve blocks. Risks and expected side effects as well as potential benefit of the procedure were reviewed and voiced concerns addressed. The printed consent form was signed and witnessed. Standard time-out procedure was performed. Patient was placed in the prone position on the fluoroscopy table and automated blood pressure cuff and pulse oximeter applied. The skin entry points for approaching the anatomic target points of the right 6th and right 7th ribs. Following thorough Chlorhexadine preparation of the skin and draping and 1% lidocaine infiltration of the skin entry points and subcutaneous tissues, a 22 gauge spinal needle was placed under fluoroscopic guidance down on to the target point for the right T7 intercostal nerve. I also used ultrasound guidance to measure the depth of the needle. I did walk the needle inferior and off the 7th rib. Position was confirmed fluoroscopic views and with 0.25ml of omnipaque 240. At this point I injected 0.5 cc of Dexamethasone followed by 5 cc of a 1/2 and 1/2 mixture ofl 0.25% Bupivacaine and 2% Lidocaine. After 3 minutes the patient stated he had complete relief of the pain to the anterior chest. At that point I decided not to persue the right 6th intercostal nerve block as we beleived we had indetified the target. After he got up from the table, he did have some continued pain much lower on the right flank many dermatomes lower than the one injected. There is also a scar at this area. I asked him to call me in a week and let me know how he was doing. It is possible that we may need to repeat today's procedure if he does not achieve full or near-full relief. He understands. Vital signs were stable throughout the procedure and were as recorded in the docflowsheet by the nursing staff. Follow up plans and appointments were discussed and was instructed to keep careful note of how the usual pain was modified by these injections. Specifically was asked to keep a pain diary for the next 24 hours using a numeric pain scale of 0-10 and report these results at the follow-up visit. Post procedure instruction was given as documented in the nursing documentation and having met discharge criteria. Patient was discharged from the [facility]. COMMENTS: Post-procedure pain VAS was 3/10. Donaldo Landry DO, MPH [facility]-Pain Management [facility] CC: Jeri Padilla
== END 2022-03-29 15:47 | disposition home or self-care (01) ==
LOC: PC 15:46
PROVIDERS: PCP Family Medicine; Visit Provider Preventive Medicine Occupational Medicine
DX: G58.0 Intercostal neuropathy (principal)
CPT/HCPCS: 64421; 72070; Q9967

== ENCOUNTER 2022-06-15 02:23 | Outpatient (CLI) | payer BC, SELFPAY ==
[2022-06-15] MEDS: Barium Sulfate 2% W/V-Berry Smoothie 450 ML BTL 900 ML PO (12:04)
[2022-06-15 12:28] LABS: ALT 28 U/L (16-63); AST 19 U/L (15-37); Albumin 3.5 g/dL (3.4-5.0); Alkaline Phosphatase 84 U/L (46-116); Anion Gap 7.8 mmol/L (3-11); BUN 17 mg/dL (7-18); Bilirubin, Total 0.4 mg/dL (0.2-1.0); CO2 30.2 mmol/L (21.0-32.0); CREATININE 1.1 mg/dL (0.70-1.30); Calcium 9.2 mg/dL (8.5-10.1); Calculated LDL 155 mg/dL (<100); Chloride 105 mmol/L (98-107); Cholesterol 232 mg/dL (<200); Glucose 109 mg/dL (74-106); HDL Cholesterol 31 mg/dL (40-60); Potassium 4.2 mmol/L (3.5-5.1); Sodium 143 mmol/L (136-145); Triglyceride 232 mg/dL (<150)
--- NOTE | 2022-06-15 14:00 | DI.CT_ITS ---
Exam(s) CT ABDOMEN PELVIS W EXAM: CT ABDOMEN PELVIS W CLINICAL HISTORY: ventral hernia,ruq abd pain, k43.9,r10.11. TECHNIQUE: Imaging Protocol: Axial computed tomography images with coronal and sagittal reformatted images were created and reviewed CONTRAST MATERIAL: Intravenous: Omnipaque-350 100cc Oral: Yes. Oral contrast was also administered for bowel opacification. COMPARISON: CT CT RENAL COLIC WO from 02/08/2022 FINDINGS: VISUALIZED LUNG BASES: No nodules nor pleural effusions evident. ABDOMEN: There is no ascites. LIVER: The liver is diffusely hypodense implying steatosis. There are no discrete focal hepatic lesi ons nor dilatation of intrahepatic ducts. No dilated intrahepatic ducts. GALLBLADDER/BILIARY: No obvious gallbladder pathology. CBD is not dilated. PANCREAS: No evidence of pancreatic mass nor dilatation of the pancreatic duct. SPLEEN: Spleen is not enlarged. No obvious intrasplenic lesions. Splenic and portal veins are paten t. ADRENALS: Right adrenal unremarkable. There is a well-defined nodule in the left adrenal gland which measures 1.7 x 1.6 cm nodule in the left adrenal gland. Cm, unchanged from prior CT scan of 022. KIDNEYS:There is small cyst inferior pole the right kidney which measures 1.5 x 1.4 cm. Does not req uire further workup. No solid renal masses. No radiopaque calculi seen in the kidneys at this time. No hydronephrosis nor hydroureter. No radiopaque calculi nor masses evident urinary bladder. Pros reeder size upper normal. Seminal vesicles unremarkable.. ABDOMINAL AORTA: Abdominal aorta is not enlarged. LYMPH NODES:There is no retroperitoneal nor paraaortic adenopathy. ABDOMINAL WALL: Fat only containing of no bowel loops within the hernia sac. No evidence of small-nasim wel obstruction nor large bowel obstruction. GI: There is no evidence of bowel obstruction, free air, nor abscess. PELVIS: GI: No evidence of appendicitis.There is sigmoid diverticuli but no evidence of acute diverticulitis. No free fluid. LYMPH NODES: There is no intrapelvic nor inguinal adenopathy. REPRODUCTIVE: Prostate size upper normal. URINARY BLADDER: No calculi nor obvious masses evident OSSEOUS: No fractures and no significant osseous lesions. IMPRESSION: 1. Compared to the prior CT scan of 02/08/2022 there is a Paddock steatosis again noted but no discre te focal hepatic lesions. No splenomegaly. No ascites. 2. Is an unchanged 17 x 16 millimeter nodule in left adrenal gland. If clinically indicated this cou ld be further studied with adrenal protocol contrast infused CT or noninfused MRI with chemical shift imaging sequences. 3. There are no calculi seen in the kidneys at this time. No hydronephrosis. 4. RADIATION DOSE DELIVERED: 1,300.2mGy.cm Total DLP DATA REPOSITORY: All CT scans at this facility are submitted to the National Radiology Data Registry (NRDR) Dose Index Registry (DIR) with the [employer] (A[employer]). RADIATION OPTIMIZATION: All CT scans at this facility use at least one of these dose optimization te chniques: automated exposure control; mA and/or kV adjustment per patient size (includes targeted exa ms where dose is matched to clinical indication); or iterative reconstruction.
[2022-06-15] MEDS: Normal Saline - Diluent 50 ML VIAL IJ (14:10)
[2022-06-15] MEDS: Omnipaque 350 MG/ML 500 ML BTL-Imaging package IJ (14:11)
[2022-06-15 22:45] LABS: PSA, Screening 0.9 ng/mL (<=4.5)
== END 2022-06-15 02:43 ==
LOC: DI 02:23
PROVIDERS: PCP Family Medicine; Visit Provider Family Medicine
DX: Z00.00 Encounter for general adult medical examination without abnormal findings (principal); R10.11 Right upper quadrant pain; K43.9 Ventral hernia without obstruction or gangrene; E78.5 Hyperlipidemia, unspecified; Z12.5 Encounter for screening for malignant neoplasm of prostate; K76.0 Fatty (change of) liver, not elsewhere classified; D35.02 Benign neoplasm of left adrenal gland
CPT/HCPCS: 80053; 80061; 84153; 74177; 82565

== ENCOUNTER 2023-03-19 09:59 | Emergency (ER) | payer BC, SELFPAY ==
[2023-03-19 10:12] VITALS: BP 142/105; PULSE 82; RESP 18; TEMP 37.1; O2SAT 98
--- NOTE | 2023-03-19 11:43 | ED.GENADUL_ITS ---
HPI General Stated Complaint: Laceration Mode of arrival: ambulatory. FARHANA: 4 Date/Time Provider Initiated Documentation: 03/19/23 10:23. Limitations to Documentation: no limitations. Information obtained by: patient and RN notes reviewed. History of Present Illness Laceration right and upper extremity constant No relieving factors improve symptom(s), No exacerbating factors reported no other symptoms. none Related Data Home Medications Medication Instructions Recorded Confirmed acetaminophen 500 mg capsule 1,000 mg (2 x 500 mg) PO Q8H PRN 04/21/20 03/19/23 PRN #90 caps ibuprofen 600 mg tablet 600 mg PO TID PRN pain #30 tabs 04/21/20 03/19/23 diclofenac sodium 1 % topical gel 4 g topical QID PRN pain #100 grams 03/08/22 03/19/23 (Voltaren Arthritis Pain) Symbicort 80 mcg-4.5 mcg/actuation 2 puff inhalation BID #10 grams 04/05/22 03/19/23 HFA aerosol inhaler (budesonide-formoterol) gabapentin 600 mg tablet 600 mg PO TID #270 tabs 04/05/22 03/19/23 gabapentin 300 mg capsule 300 mg PO TID pain 05/31/22 03/19/23 lidocaine 5 % topical patch 2 patch topical DAILY #30 ea 05/31/22 03/19/23 nortriptyline 25 mg capsule 25 mg PO QHS #90 caps 05/31/22 03/19/23 minocycline 50 mg capsule 50 mg PO BID #60 tab-caps 10/24/22 03/19/23 Previous Rx's Medication Instructions Recorded acetaminophen 500 mg capsule 1,000 mg (2 x 500 mg) PO Q8H PRN 04/21/20 PRN #90 caps ibuprofen 600 mg tablet 600 mg PO TID PRN pain #30 tabs 04/21/20 diclofenac sodium 1 % topical gel 4 g topical QID PRN pain #100 grams 03/08/22 (Voltaren Arthritis Pain) Symbicort 80 mcg-4.5 mcg/actuation 2 puff inhalation BID #10 grams 04/05/22 HFA aerosol inhaler (budesonide-formoterol) gabapentin 600 mg tablet 600 mg PO TID #270 tabs 04/05/22 lidocaine 5 % topical patch 2 patch topical DAILY #30 ea 05/31/22 nortriptyline 25 mg capsule 25 mg PO QHS #90 caps 05/31/22 minocycline 50 mg capsule 50 mg PO BID #60 tab-caps 10/24/22 Allergies Allergy/AdvReac Type Severity Reaction Status Date / Time No Known Allergies Allergy Verified 03/19/23 10:14 Review of Systems Cardiovascular Cardiovascular: Denies syncope and Denies lightheadedness Musculoskeletal Musculoskeletal: Denies deformity, Denies limited range of motion and Denies numbness Integumentary/Breasts Skin/Breast: Reports as per HPI Neurologic Neurologic: Denies syncope, Denies numbness and Denies paresthesias PFS All Active Problems Laceration of ring finger with damage to nail (Acute) Fatty liver disease, nonalcoholic (Acute) Ventral hernia without obstruction or gangrene (Acute) Abdominal pain, RUQ (right upper quadrant) (Acute) Shingles (herpes zoster) polyneuropathy (Chronic) Rotator cuff impingement syndrome of left shoulder (Acute) Rotator cuff impingement syndrome of right shoulder (Acute) Bursitis of right shoulder (Acute) Elevated BP without diagnosis of hypertension (Acute) Arthritis of left acromioclavicular joint (Acute) Excessive cerumen in both ear canals (Chronic) Asymmetrical sensorineural hearing loss (Chronic) Arthritis of right acromioclavicular joint (Chronic) Chronic bronchitis (Chronic) PFT 03/2021: mpression Mild airflow obstruction with hyperinflation and a normal diffusion. This may represent chronic bronchitis (COPD) or uncontrolled asthma in the correct clinical setting. Clinical Correlation therefore is recommended. On symbicort with good effect. Hearing impairment (Chronic) Cystic acne vulgaris (Chronic) back of neck, face, cystic nodular acne managed for several years with minocycline Low HDL (under 40) (Chronic) Medical History History of COVID-19 (~01/2021) Umbilical hernia History of alcoholism quit in 1994 History of tobacco use quit in 1996; 40 pack-yr history Knee pain right; recurrent effusion; arthroscopy-torn meniscus; chronic ache Erectile dysfunction Surgical History Fascial defect left lower leg S/P fasciotomy: 04/21/2020 Status post meniscectomy Family History Mother Lung cancer Father Heart disease Sister No problems noted. Brother , age 62 Heart disease Paternal Grandmother Cancer Maternal Grandmother No problems noted. Maternal Grandfather No problems noted. Paternal Grandfather No problems noted. Sister No problems noted. 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 Pets and animals: Yes Pets and animals: cat(s) Sexually active: No Do you think of yourself as: straight/heterosexual Current gender identity: male What is your relationship status?: How often do you talk on the phone with friends or family?: never How often do you get together with friends or relatives?: never How often do you attend bahai or catholic services?: 4 or more times per year Do you belong to any clubs or organized social groups?: no Panel score (0-1 are the most socially isolated patients): 2 What type of physical activity do you participate in: none Frequency: does not exercise Chloe/Mormonism: Scientology Special chloe needs: No Seatbelt use: always Helmet use: No Drive intox or ride w/intox semi 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: No Do you feel safe at home: Yes Do you feel safe in your relationship?: Yes Victim of physical abuse: No Victim of emotional abuse: No Victim of sexual abuse: No Would you like helpful sources: No Exam Const General: cooperative, no acute distress and not ill appearing Orientation: alert, awake and oriented x3 HENMT Mouth: moist mucous membranes Resp Effort & Inspection: normal respiratory effort, able to speak in complete sentences and no respiratory distress Skin General skin exam: no rashes or lesions noted Neuro General: patient alert, patient awake, patient oriented x3, moves all extremities and no focal motor deficits Sensory Exam: no sensory deficits noted Extrem General: normal exam except as noted Right upper extremity: hand Details: laceration 4th digit distal Details: linear, actively bleeding and with sensation intact Course Vital Signs Vital signs: Vital Signs Temperature 37.1 C 03/19/23 10:12 Pulse 82 03/19/23 10:12 Respiratory Rate 18 03/19/23 10:12 Blood Pressure 142/105 H 03/19/23 10:12 Pulse Oximetry 98 03/19/23 10:12 Temperature 37.1 C 03/19/23 10:12 Temperature Source Skin 03/19/23 10:12 Pulse 82 03/19/23 10:12 Respiratory Rate 18 03/19/23 10:12 Blood Pressure 142/105 H 03/19/23 10:12 Blood Pressure Position Sitting 03/19/23 10:12 Pulse Oximetry 98 03/19/23 10:12 Oxygen Delivery Method Room Air 03/19/23 10:12 Oxygen Flow Rate 0 03/19/23 10:12 Pain Level 3 03/19/23 10:12 Procedures Laceration Laceration 1: Site: hand Side (If applicable): right Size (cm): 1.5 Description: linear Depth: simple, single layer Local Anesthetic: Lidocaine 1% Amount of anesthesia used (mL): 1 Pre-repair: wound explored, irrigated extensively and deep structures intact Skin layer closed with: other (prolene) Size (cm): 5-0 and other (Dermabond) Number of sutures: 2 Medical Decision Making Patient presenting to the emergency department for right ring finger laceration. Proximately 1 hour prior to arrival patient was trying to start his snowblower when he cut his finger on a piece of the sheet-metal. Patient believes his tetanus is up-to-date denies other injury or trauma. Physical exam shows a bleeding laceration to the distal aspect of the right ring finger. Wound was cleansed by nursing staff and there does seem to be some nail involvement and is approximately 1.5 cm in total length. Please see procedure note for wound repair. 2 Prolene sutures were used to close the wound. Patient's tetanus is up-to-date. After discussion of diagnosis and plan of care patient has no further needs, questions, or concerns and states clear understanding to return to the emergency department for any worsening symptoms. This documentation was generated using [employer] dictation system, please disregard any oddities of phrase or misspellings. Quality:SDOH Health Related Social Needs: No Data to Display Discharge Plan Disposition Patient Disposition: Home Discharge Details Clinical Impression: Laceration of ring finger with damage to nail Primary Care Provider: Jeri Padilla ED Provider: Sanchez Wallace Home Meds and New Rx's Prescriptions: No Action gabapentin 300 mg capsule 300 mg PO TID nortriptyline 25 mg capsule 25 mg PO QHS Qty: 90 3RF Patient Comments: pt states not taking d/t side effects lidocaine 5 % adhesive patch,medicated 2 patch topical DAILY Qty: 30 12RF Rx Instructions: leave on most painful area for up to 12 hrs budesonide-formoterol [Symbicort] 80-4.5 mcg/actuation HFA aerosol inhaler 2 puff inhalation BID Qty: 10 12RF Patient Comments: pt states not taking anymore gabapentin 600 mg tablet 600 mg PO TID Qty: 270 3RF diclofenac sodium [Voltaren Arthritis Pain] 1 % gel 4 g topical QID PRN (Reason: pain) Qty: 100 4RF Rx Instructions: Apply to affected area four times per day as needed minocycline 50 mg capsule 50 mg PO BID Qty: 60 6RF ibuprofen 600 mg tablet 600 mg PO TID PRN (Reason: pain) Qty: 30 0RF acetaminophen 500 mg capsule 1,000 mg PO Q8H PRN PRNQty: 90 0RF Discharge Instructions Instructions: Finger Laceration (ED) Additional Instructions: Watch for any signs of infection and return immediately to the emergency department if these occur. Otherwise keep dressing in place for the next 24-48 hours and then keep wound clean and dry. Return to the emergency department 7- 10 days for suture removal. Referrals: Jeri Padilla MD [Primary Care Provider] - (As needed) Discharge Data Discharge Date/Time-TO BE ENTERED AT DEPARTURE: 03/19/23 12:18
== END 2023-03-19 12:18 | disposition home or self-care (01) ==
PROVIDERS: Emergency Provider Nurse Practitioner Family; PCP Family Medicine
DX: S61.314A Laceration without foreign body of right ring finger with damage to nail, initial encounter (principal); W26.8XXA Contact with other sharp object(s), not elsewhere classified, initial encounter
CPT/HCPCS: 12001

== ENCOUNTER 2023-03-22 03:25 | Outpatient (CLI) | payer BC, SELFPAY ==
[2023-03-22 12:14] LABS: HCT 43.7 % (40.0-50.0); HGB 13.7 g/dL (13.5-17.5); MCH 27.7 pg (27.0-33.0); MCHC 31.4 % (32.0-36.0); MCV 88 fL (80-95); MPV 10.9 fL (8.0-11.0); Platelet Count 400 10^3/uL (130-400); RBC 4.95 10^6/uL (4.36-5.78); RDW 14.6 % (11.8-14.1); RDW-SD 47.7 fL; WBC 12.75 10^3/uL (4.4-10.8)
[2023-03-22 12:29] LABS: Hemoglobin A1C 6.2 % (<5.7)
[2023-03-22 12:32] LABS: ALT 63 U/L (16-63); AST 38 U/L (15-37); Albumin 3.4 g/dL (3.4-5.0); Alkaline Phosphatase 84 U/L (46-116); Anion Gap 8.2 mmol/L (3-11); BUN 19 mg/dL (7-18); Bilirubin, Total 0.3 mg/dL (0.2-1.0); CO2 26.8 mmol/L (21.0-32.0); CREATININE 1.2 mg/dL (0.70-1.30); Calcium 9.4 mg/dL (8.5-10.1); Calculated LDL 134 mg/dL (<100); Chloride 105 mmol/L (98-107); Cholesterol 217 mg/dL (<200); Glucose 110 mg/dL (74-106); HDL Cholesterol 34 mg/dL (40-60); Potassium 4.4 mmol/L (3.5-5.1); Sodium 140 mmol/L (136-145); Total Protein 8.2 g/dL (6.4-8.2); Triglyceride 246 mg/dL (<150)
== END 2023-03-22 03:26 | disposition home or self-care (01) ==
LOC: LOS 03:25
PROVIDERS: PCP Family Medicine; Visit Provider Family Medicine
DX: K76.0 Fatty (change of) liver, not elsewhere classified (principal); Z00.00 Encounter for general adult medical examination without abnormal findings; R73.01 Impaired fasting glucose; Z13.6 Encounter for screening for cardiovascular disorders
CPT/HCPCS: 36415; 80053; 80061; 85027; 83036

== ENCOUNTER → 2023-07-13 03:29 | Outpatient (CLI) | payer BC, SELFPAY ==
--- NOTE | 2023-07-13 | DI.MRI_ITS ---
Exam(s) MR THORACIC SPINE WO EXAM: MR THORACIC SPINE WO CLINICAL HISTORY: postherpetic nauralgia b02.29 rt chest wall pain r07.89 radiculopathy TECHNIQUE: Multiplanar multisequence MRI of the thoracic spine was performed without intravenous con trast. COMPARISON: No exams were available for comparison FINDINGS: OSSEOUS: There are no acute appearing thoracic vertebral fractures. There is a benign intraosseous he mangioma noted in the right-side of the T11 vertebral body which measures 1.2 cm AP x 0.7 cm wide by 0.8 cm craniocaudal. T2 there is also a benign intraosseous hemangioma noted slightly right of cente r in the T9 vertebral body. There are no ominous osseous lesions in the thoracic vertebrae. THORACIC SPINAL CORD: There is no abnormal signal in the thoracic spinal cord and no evidence of foca l cord atrophy nor focal cord swelling. No evidence of syringomyelia nor thoracic cord dysraphism CONUS MEDULLARIS: Conus medullaris is not included in the field of view of this study. The lower mos t aspect of the field of this study is L1 vertebral body. SIGNIFICANT INDIVIDUAL LEVEL FINDINGS: There are no disc herniations evident. No central canal stenosis. No foraminal stenosis. PARASPINAL TISSUES: No significant masses nor fluid collections evident. IMPRESSION: 1. No significant findings on this noninfused MRI scan of the thoracic spinal column/thoracic spinal cord. 2. Please note that the entire conus medullaris is not included in the field of this study in this pa tient should return at no additional charge for additional sequences to include the entire conus medu llaris. DATA REPOSITORY:
== END ==
PROVIDERS: PCP Family Medicine; Visit Provider Student in an Organized Health Care Education/Training Program
DX: B02.29 Other postherpetic nervous system involvement (principal); R07.89 Other chest pain
CPT/HCPCS: 72146

== ENCOUNTER 2023-12-03 03:39 | Outpatient (CLI) | payer BC, SELFPAY ==
[2023-12-03 12:29] LABS: ALT 40 U/L (16-63); AST 27 U/L (15-37); Albumin 3.3 g/dL (3.4-5.0); Alkaline Phosphatase 101 U/L (46-116); Anion Gap 8.2 mmol/L (3-11); BUN 19 mg/dL (7-18); Bilirubin, Total 0.32 mg/dL (0.2-1.0); CO2 26.8 mmol/L (21.0-32.0); CREATININE 1.2 mg/dL (0.70-1.30); Calculated LDL 49 mg/dL (<100); Chloride 106 mmol/L (98-107); Cholesterol 127 mg/dL (<200); Estimated GFR 66.28 (mL/min/1.73m2); Glucose 155 mg/dL (74-106); HDL Cholesterol 33 mg/dL (40-60); Hemoglobin A1C 6.3 % (<5.7); Potassium 4.3 mmol/L (3.5-5.1); Sodium 141 mmol/L (136-145); Total Protein 7.4 g/dL (6.4-8.2); Triglyceride 227 mg/dL (<150)
== END 2023-12-03 03:40 | disposition home or self-care (01) ==
LOC: LOS 03:39
PROVIDERS: PCP Family Medicine; Visit Provider Family Medicine
DX: Z00.00 Encounter for general adult medical examination without abnormal findings (principal); K76.0 Fatty (change of) liver, not elsewhere classified; R73.01 Impaired fasting glucose; Z13.6 Encounter for screening for cardiovascular disorders
CPT/HCPCS: 36415; 80053; 80061; 83036

== ENCOUNTER 2024-08-21 01:53 | Outpatient (CLI) | payer BC, SELFPAY ==
[2024-08-21 19:54] LABS: Hepatitis C Ab w Rflx HCV PCR Negative (Negative)
== END 2024-08-21 01:54 | disposition home or self-care (01) ==
LOC: LOS 01:53
PROVIDERS: PCP Family Medicine; Visit Provider Family Medicine
DX: Z12.5 Encounter for screening for malignant neoplasm of prostate (principal); Z11.59 Encounter for screening for other viral diseases
CPT/HCPCS: 36415; 84153; 86803

== ENCOUNTER 2024-09-15 02:54 | Outpatient (CLI) | payer BC, SELFPAY ==
--- NOTE | 2024-09-15 07:45 | DI.RAD_ITS ---
Exam(s) XR KNEE RT 3V AP,LAT,SHMUEL EXAM: XR KNEE RT 3V AP,LAT,SHMUEL CLINICAL HISTORY: bilat knee pain,rt knee pain, m25.561. TECHNIQUE: 2D digital imaging was performed. Three views. COMPARISON: CR XR KNEE LT 3V AP,LAT,SHMUEL from 09/15/2024 FINDINGS: BONES: No acute fracture is present. No bony destructive lesion is seen. JOINTS: Severe narrowing of the medial femoral tibial joint space. Mild to moderate periarticular spurring noted throughout. Chondrocalcinosis no joint effusion is seen. SOFT TISSUE: Normal. IMPRESSION: Severe degenerative changes of the medial femoral tibial joint. DATA REPOSITORY: RADIATION DOSE DELIVERED:
--- NOTE | 2024-09-15 07:45 | DI.RAD_ITS ---
Exam(s) XR WRIST LT COMPLETE EXAM: XR WRIST LT COMPLETE CLINICAL HISTORY: left wrist pain,m25.532. TECHNIQUE: 2D digital imaging was performed. Three views. COMPARISON: No exams were available for comparison FINDINGS: BONES: No acute fracture is present. No bony destructive lesion is seen. JOINTS: The carpal bones are normally aligned. Minimal degenerative changes. SOFT TISSUE: Small rounded calcification near the distal ulna. IMPRESSION: Minimal degenerative changes. DATA REPOSITORY: RADIATION DOSE DELIVERED:
--- NOTE | 2024-09-15 07:45 | DI.RAD_ITS ---
Exam(s) XR KNEE LT 3V AP,LAT,SHMUEL EXAM: XR KNEE LT 3V AP,LAT,SHMUEL CLINICAL HISTORY: bilat knee pain,lt knee pain, m25.562. TECHNIQUE: 2D digital imaging was performed. Three views. COMPARISON: MR MRI R LOWER JOINT WO CONT from 06/18/2008 CR XR TIB/FIB LT from 02/26/2020 FINDINGS: BONES: No acute fracture is present. No bony destructive lesion is seen. Enthesophyte upper pole of the patella. JOINTS: The knee is normally aligned. Mild periarticular spurring. No joint effusion is seen. Chondrocalcinosis. SOFT TISSUE: Normal. IMPRESSION: Mild degenerative changes and chondrocalcinosis. DATA REPOSITORY: RADIATION DOSE DELIVERED:
== END 2024-09-15 03:14 ==
LOC: DI 02:54
PROVIDERS: PCP Family Medicine; Visit Provider Family Medicine
DX: M11.162 Familial chondrocalcinosis, left knee (principal); M17.0 Bilateral primary osteoarthritis of knee; M25.532 Pain in left wrist
CPT/HCPCS: 73562; 73110

== ENCOUNTER 2024-10-05 12:10 | Emergency (ER) | payer BC, SELFPAY ==
[2024-10-05 12:49] VITALS: BP 136/82; PULSE 78; RESP 16; TEMP 36.6; O2SAT 95
--- NOTE | 2024-10-05 14:17 | W.ED.GENAD ---
Discharge Plan Disposition Patient Disposition: Home Condition: Stable Discharge Details Clinical Impression: Infected insect bite of right forearm Primary Care Provider: Jeri Padilla ED Provider: Tasha De Los Santos Home Meds and New Rx's Prescriptions: New clindamycin HCl 150 mg capsule 450 mg PO QID 7 Days Qty: 84 0RF Rx Instructions: Take 3 capsules by mouth 4 times a day x 7 days Continued diclofenac sodium 75 mg tablet,delayed release (DR/EC) 75 mg PO BID Qty: 60 5RF ketoconazole 2 % cream 1 applic topical DAILY Qty: 120 6RF Rx Instructions: Apply to toenails once daily cephalexin 500 mg capsule 500 mg PO QID 7 Days Qty: 28 0RF mupirocin 2 % ointment 1 applic topical TID Qty: 15 0RF Rx Instructions: apply twice daily for 7 days phentermine 37.5 mg capsule 37.5 mg PO DAILY Qty: 30 2RF Rx Instructions: must administer 30 minutes before or 1-2 hours after breakfast pregabalin 300 mg capsule 300 mg PO BID Qty: 60 5RF lidocaine 5 % adhesive patch,medicated 2 patch topical DAILY Qty: 30 12RF Rx Instructions: leave on most painful area for up to 12 hrs minocycline 50 mg capsule 50 mg PO BID Qty: 60 6RF atorvastatin 80 mg tablet 80 mg PO QHS Qty: 90 3RF diclofenac sodium [Voltaren Arthritis Pain] 1 % gel 4 g topical QID PRN (Reason: pain) Qty: 100 4RF Rx Instructions: Apply to affected area four times per day as needed acetaminophen 500 mg capsule 1,000 mg PO Q8H PRN PRNQty: 90 0RF Discharge Instructions Instructions: Wound Infection, Cellulitis (Skin Infection), Adult ED Additional Instructions: Please continue taking the cephalexin or the previously prescribed antibiotic. Please add the clindamycin which you were given here in the IV today. He will take 3 tablets 4 times daily for the next 7 days. You were given 1 days dose you may start that in the morning. Take the antibiotics with yogurt or a probiotic daily. The redness was marked. Please give an additional 2 days of the antibiotic, return if any spreading of the redness up your arm, pain in your armpit, inability to bend your elbow, fever chills body aches or worsening concerns. Keep the wound area clean and dry. Wash it with running soap and water daily. Allow to air dry at least 2 hours a day. Follow up with primary care provider in 3-5 days. Return to ED sooner if any worsening or concerns. Please take Tylenol or Ibuprofen with food every 4-6 hours as needed for pain and swelling. Referrals: Jeri Padilla MD [Primary Care Provider, Medicine] - 5 days Referral Note: ER follow-up, wound recheck Clinical Impression: Infected insect bite of right forearm HPI General Mode of arrival: ambulatory. Date/Time Provider Initiated Documentation: 10/05/24 12:48. Limitations to Documentation: no limitations. Information obtained by: patient, RN notes reviewed and old records reviewed. HPI Narrative: 68-year-old male presents to the ER with a chief complaint of right anterior forearm wound which he was seen initially at [facility]. Placed on cephalexin 4 times daily approximately 4 days ago. He reports that he was possibly bit by a spider while sleeping. Reports that originally it was very swollen and red now it has opened up and has purulent drainage. Does have surrounding erythema and induration. Denies any fever chills body aches. No axillary lymphadenopathy or significant red streaks extending up past his elbow. Related Data Home Medications ?Medication ?Instructions ?Recorded ?Confirmed acetaminophen 500 mg capsule 1,000 mg (2 x 500 mg) PO Q8H PRN 04/21/20 10/05/24 PRN #90 caps lidocaine 5 % topical patch 2 patch topical DAILY #30 ea 07/03/23 09/11/24 minocycline 50 mg capsule 50 mg PO BID #60 tab-caps 11/29/23 10/05/24 atorvastatin 80 mg tablet 80 mg PO QHS #90 tabs 04/21/24 10/05/24 diclofenac sodium 75 mg 75 mg PO BID #60 tabs 05/28/24 10/05/24 tablet,delayed release diclofenac sodium 1 % topical gel 4 g topical QID PRN pain #100 grams 08/12/24 10/05/24 (Voltaren Arthritis Pain) ketoconazole 2 % topical cream 1 applic topical DAILY #120 grams 08/12/24 10/05/24 phentermine 37.5 mg capsule 37.5 mg PO DAILY #30 caps 09/11/24 10/05/24 pregabalin 300 mg capsule 300 mg PO BID #60 caps 09/11/24 10/05/24 cephalexin 500 mg capsule 500 mg PO QID 7 days #28 caps 10/01/24 10/05/24 mupirocin 2 % topical ointment 1 applic topical TID #15 grams 10/01/24 10/05/24 clindamycin HCl 150 mg capsule 450 mg (3 x 150 mg) PO QID 10/05/24 Cellulitis 7 days #84 caps Previous Rx's ?Medication ?Instructions ?Recorded acetaminophen 500 mg capsule 1,000 mg (2 x 500 mg) PO Q8H PRN 04/21/20 PRN #90 caps lidocaine 5 % topical patch 2 patch topical DAILY #30 ea 07/03/23 minocycline 50 mg capsule 50 mg PO BID #60 tab-caps 11/29/23 atorvastatin 80 mg tablet 80 mg PO QHS #90 tabs 04/21/24 diclofenac sodium 75 mg 75 mg PO BID #60 tabs 05/28/24 tablet,delayed release diclofenac sodium 1 % topical gel 4 g topical QID PRN pain #100 grams 08/12/24 (Voltaren Arthritis Pain) ketoconazole 2 % topical cream 1 applic topical DAILY #120 grams 08/12/24 phentermine 37.5 mg capsule 37.5 mg PO DAILY #30 caps 09/11/24 pregabalin 300 mg capsule 300 mg PO BID #60 caps 09/11/24 cephalexin 500 mg capsule 500 mg PO QID 7 days #28 caps 10/01/24 mupirocin 2 % topical ointment 1 applic topical TID #15 grams 10/01/24 clindamycin HCl 150 mg capsule 450 mg (3 x 150 mg) PO QID 10/05/24 Cellulitis 7 days #84 caps Allergies Allergy/AdvReac Type Severity Reaction Status Date / Time No Known Allergies Allergy Verified 10/05/24 12:57 General Stated Complaint: Cellulitis FARHANA: 3 Review of Systems All systems reviewed & are unremarkable except as noted in HPI and below Constitutional Constitutional: Denies body ache(s) and Denies fever(s) Integumentary/Breasts Skin/Breast: Reports as per HPI, Reports non-healing lesions, Reports erythema and Reports wounds Exam Extrem Right upper extremity: normal capillary refill and elbow/forearm Details: abnormal to inspection Details: erythema, tenderness, swelling, warmth and penetrating wound forearm distal anterior Details: single Elbow/forearm/wrist images:  1. Erythema, induration, central excoriation with purulent drainage noted to the wound bed. Course Vital Signs Vital signs: Vital Signs Temperature 36.6 C 10/05/24 12:49 Pulse 78 10/05/24 12:49 Respiratory Rate 16 10/05/24 12:49 Blood Pressure 136/82 10/05/24 12:49 Pulse Oximetry 95 10/05/24 12:49 Temperature 36.6 C 10/05/24 12:49 Temperature Source Oral 10/05/24 12:49 Pulse 78 10/05/24 12:49 Respiratory Rate 16 10/05/24 12:49 Blood Pressure 136/82 10/05/24 12:49 Blood Pressure Position Sitting 10/05/24 12:49 Pulse Oximetry 95 10/05/24 12:49 Oxygen Delivery Method Room Air 10/05/24 12:49 Oxygen Flow Rate 0 10/05/24 12:49 Medical Decision Making 68-year-old male presents to the ER with a chief complaint of right anterior forearm wound which he was seen initially at [facility]. Placed on cephalexin 4 times daily approximately 4 days ago. He reports that he was possibly bit by a spider while sleeping. Reports that originally it was very swollen and red now it has opened up and has purulent drainage. Does have surrounding erythema and induration. Denies any fever chills body aches. No axillary lymphadenopathy or significant red streaks extending up past his elbow. CBC, CMP, blood cultures x 2 ordered, IV 600 mg clindamycin. Labs show no leukocytosis, BUN slightly elevated at 24 creatinine 1.2 GFR 66, glucose 115 blood cultures are pending at this time. Placed on clindamycin to add to the cephalexin he is already on. Instructed on strict return instructions and erythema marked by ED staff. Nonadherent dressing applied. At this time patient has no systemic symptoms or signs of sepsis. Remained afebrile throughout the remainder of her stay. Instructed to follow-up with PCP or return to the ER for any worsening. This text was generated using [employer]structureation system, please disregard any oddities of phrase or misspellings. Lab Data Lab results reviewed: Yes I reviewed the patient's lab results. Labs: 10/05/24 14:28 Blood Blood Culture - Pending 10/05/24 14:15 Blood Blood Culture - Pending Laboratory Tests Range/Units 10/05/24 14:28 WBC (4.4-10.8) 10^3/uL 9.85 RBC (4.36-5.78) 10^6/uL 4.66 Hgb (13.5-17.5) g/dL 13.2 L Hct (40.0-50.0) % 41.2 MCV (80-95) fL 88 MCH (27.0-33.0) pg 28.3 MCHC (32.0-36.0) % 32.0 RDW (11.8-14.1) % 14.6 H Plt Count (130-400) 10^3/uL 322 MPV (8.0-11.0) fL 11.4 H Immature Gran % % 0.4 Neutrophils % % 53.5 Lymphocytes % % 30.5 Monocytes % % 9.1 Eosinophils % % 5.7 Basophils % % 0.8 Nucleated RBC % (0.0-0.3) % 0.0 Absolute Neutrophils (1.2-6.7) 10^3/uL 5.27 Absolute Lymphocytes (1.2-3.4) 10^3/uL 3.00 Absolute Monocytes (0.1-0.8) 10^3/uL 0.90 H Absolute Eosinophils (0.0-0.7) 10^3/uL 0.56 Absolute Basophils (0.0-0.2) 10^3/uL 0.08 Sodium (136-145) mmol/L 141 Potassium (3.5-5.1) mmol/L 4.5 Chloride (98-107) mmol/L 106 Carbon Dioxide (21.0-32.0) mmol/L 27.4 Anion Gap (3-11) mmol/L 7.6 BUN (7-18) mg/dL 24 H Creatinine (0.70-1.30) mg/dL 1.2 Est GFR (CKD-EPI 2020) (mL/min/1.73m2) 66.28 Glucose (74-106) mg/dL 115 H Calcium (8.5-10.1) mg/dL 8.8 Magnesium (1.8-2.4) mg/dL 2.1 Total Bilirubin (0.2-1.0) mg/dL 0.2 AST (15-37) U/L 27 ALT (16-63) U/L 35 Alkaline Phosphatase (46-116) U/L 98 Total Protein (6.4-8.2) g/dL 7.6 Albumin (3.4-5.0) g/dL 3.4 PFSH All Active Problems (Updated 10/05/24 @ 15:43 by Tasha De Los Santos NP) Infected insect bite of right forearm (Acute) Fissure in skin (Acute) Plantar callosity (Acute) Dystrophia unguium (Acute) Onychomycosis (Acute) Class 2 obesity due to excess calories with body mass index (BMI) of 36.0 to 36.9 in adult (Acute) Fasting hyperglycemia (Acute) Fatty liver disease, nonalcoholic (Acute) Ventral hernia without obstruction or gangrene (Acute) Abdominal pain, RUQ (right upper quadrant) (Acute) Shingles (herpes zoster) polyneuropathy (Chronic) declined spinal cord stimulator; managed with gabapentin Rotator cuff impingement syndrome of left shoulder (Acute) Rotator cuff impingement syndrome of right shoulder (Acute) Bursitis of right shoulder (Acute) Elevated BP without diagnosis of hypertension (Acute) Arthritis of left acromioclavicular joint (Acute) Excessive cerumen in both ear canals (Chronic) Asymmetrical sensorineural hearing loss (Chronic) Arthritis of right acromioclavicular joint (Chronic) Chronic bronchitis (Chronic) PFT 03/2021: mpression Mild airflow obstruction with hyperinflation and a normal diffusion. This may represent chronic bronchitis (COPD) or uncontrolled asthma in the correct clinical setting. Clinical Correlation therefore is recommended. On symbicort with good effect. Hearing impairment (Chronic) Cystic acne vulgaris (Chronic) back of neck, face, cystic nodular acne managed for several years with minocycline Low HDL (under 40) (Chronic) Medical History History of COVID-19 (~01/2021) Umbilical hernia History of alcoholism quit in 1994 History of tobacco use quit in 1996; 40 pack-yr history Knee pain right; recurrent effusion; arthroscopy-torn meniscus; chronic ache Erectile dysfunction Surgical History Fascial defect left lower leg S/P fasciotomy: 04/21/2020 Status post meniscectomy Family History Mother Lung cancer Father Heart disease Sister Laryngeal cancer Brother , age 62 Heart disease Paternal Grandmother Cancer Maternal Grandmother No problems noted. Maternal Grandfather No problems noted. Paternal Grandfather No problems noted. Sister Substance use disorder Brother Kidney failure Social History Smoking/Tobacco Use Status: Former Tobacco Use tobacco type: cigarettes Quit Date: 03/12/97 Pack-years: 26 Tobacco: How many years used: 40 Second Hand Exposure: Yes Smoking risk assessment performed?: Yes Alcohol Intake: former Year quit: 1994 Previous attempts at quittin Drug use: Never Substance use type: does not use Details: sober 1994 Adopted: No Caregiver/Support person: No Household members: spouse and other Details: Grandson Housing: house Number of Children: 2 number of grandchildren: 1 Communication Needs: Hard of Hearing Education Level: high school Do you need help understanding health information?: Never current occupation: Retired [employer] Pets and animals: Yes Pets and animals: cat(s) Sexually active: No Do you think of yourself as: straight/heterosexual Current gender identity: male What is your relationship status?: How often do you talk on the phone with friends or family?: decline to answer How often do you get together with friends or relatives?: decline to answer How often do you attend worship or hindu services?: 4 or more times per year Do you belong to any clubs or organized social groups?: no Panel score (0-1 are the most socially isolated patients): 2 What type of physical activity do you participate in: none Frequency: does not exercise Chloe/Latter Day: Non muslim Special chloe needs: No Seatbelt use: sometimes Helmet use: No 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
[2024-10-05 14:35] VITALS: BP 136/82; PULSE 78; RESP 16; TEMP 36.6; O2SAT 95
[2024-10-05 14:38] LABS: Abs Immature Grans 0.04 10^3/uL (0.0-0.06); HCT 41.2 % (40.0-50.0); HGB 13.2 g/dL (13.5-17.5); Immature Grans % 0.4 %; MCH 28.3 pg (27.0-33.0); MCHC 32.0 % (32.0-36.0); MCV 88 fL (80-95); MPV 11.4 fL (8.0-11.0); Platelet Count 322 10^3/uL (130-400); RBC 4.66 10^6/uL (4.36-5.78); RDW 14.6 % (11.8-14.1); RDW-SD 46.7 fL; WBC 9.85 10^3/uL (4.4-10.8)
[2024-10-05 14:59] LABS: ALT 35 U/L (16-63); AST 27 U/L (15-37); Albumin 3.4 g/dL (3.4-5.0); Alkaline Phosphatase 98 U/L (46-116); Anion Gap 7.6 mmol/L (3-11); BUN 24 mg/dL (7-18); Bilirubin, Total 0.2 mg/dL (0.2-1.0); CO2 27.4 mmol/L (21.0-32.0); Calcium 8.8 mg/dL (8.5-10.1); Chloride 106 mmol/L (98-107); Estimated GFR 66.28 (mL/min/1.73m2); Glucose 115 mg/dL (74-106); Magnesium 2.1 mg/dL (1.8-2.4); Potassium 4.5 mmol/L (3.5-5.1); Sodium 141 mmol/L (136-145); Total Protein 7.6 g/dL (6.4-8.2)
[2024-10-05] MEDS: CLINDAMYCIN 600 MG/50 ML BAG 100 MG IVPB (15:01)
== END 2024-10-05 16:00 | disposition home or self-care (01) ==
PROVIDERS: Emergency Provider Registered Nurse Emergency; PCP Family Medicine
DX: S50.861A Insect bite (nonvenomous) of right forearm, initial encounter (principal); L08.9 Local infection of the skin and subcutaneous tissue, unspecified; W57.XXXA Bitten or stung by nonvenomous insect and other nonvenomous arthropods, initial encounter
CPT/HCPCS: 99284 ×2; 80053; 87040; 96365; 83735; 85025; J0737

== ENCOUNTER → 2025-01-08 03:47 | Outpatient (CLI) | payer BC, SELFPAY ==
--- NOTE | 2025-01-08 06:15 | ETT_ITS ---
APPROVED REPORT Exam: Exercise Treadmill Patient Location: Out-Patient Room/Bed: Stress Nurse: Saranya Morfin RN Ordering Provider:GARTH RODRIGUEZ, Contact Number: [phone] BMI: 36.47 Baseline Rhythm: Sinus Rhythm Indications: chest pain Medical History Medical History: Covid 19, alcoholism (quit 1994), tobacco use, knee pain, obesity, shingles polyneuropathy, hearing impairment, COPD Cardiac Medications: albuterol sulfate, atorvastatin, diclofenec minocycline, pregabalin Allergies: NKA Cardiac Risk Factors: family hx, HLD, COPD, former smoker, obesity Previous Cardiac Procedures: n/a Pretest Chest Pain Characteristics: No chest pain Exercise History: Indeterminate Physical Disabilities: Knees Lung Sounds: Clear to auscultation Heart Sounds: Regular Stress Test Details Test: Exercise stress testing was performed using a Abbe protocol. Rest Stress HR Resting HR Supine: 63 bpm Max Heart Rate (APMHR): 152 bpm Resting HR Standin bpm Target HR (85% APMHR): 129 bpm Max HR Achieved: 132 bpm % of APMHR: 87 Recovery HR: 66 bpm HR response to stress: Normal HR response to stress BP Resting BP Supine: 150/94 mmHg Resting BP Standin/94 mmHg Max BP: 210/96 mmHg Recovery BP: 156/98 mmHg BP response to stress: Normal blood pressure response to stress. ECG Resting ECG: Sinus Rhythm Ectopy: n/a Stress ECG: Sinus Tachycardia ST Change: No significant ST segment changes noted Arrhythmia: None Recovery ECG: Sinus Rhythm Recovery ST Change: No significant ST segment changes noted Recovery Arrhythmia: rare PACs Clinical Reason for Termination: Target HR Achieved Stress Symptoms: General Fatigue Exercise duration: 02 min31 sec Highest Stage Reached: Stage 1: 1.7 mph at 10% grade. Exercise capacity: 4.64 METs Angina Score: None Rate Pressure Product: [id number] Stress ECG Conclusion 1. Resting electrocardiogram shows poor R wave progression 2. Patient exercised on the Abbe protocol for 2 minutes and 31 seconds, poor exercise capacity 3. Normal heart rate and blood pressure response to exercise. Patient achieved 87% of maximal predicted heart rate for age 4. There was no electrocardiographic evidence of myocardial ischemia 5. There were no significant dysrhythmias Stress Test Summary STAGE Time (mins) Speed (mph) Grade (%) HR BP SpO2 SYMPTOMS METS Supine 63 150/94 97 Standing 71 154/94 1 3 1.7 10 130 mild SOB 4.5 1 min recovery 95 210/96 98 3 min recovery 71 168/100 6 min recovery 66 156/98 98 Pt reached target HR, test stopped per pt request r/t b/l knee pain (chronic issue). Mild SOB reported with exercise, resolved by test end. Pt left ambulatory in no acute distress.
== END ==
LOC: DI 03:47
PROVIDERS: PCP Family Medicine; Visit Provider Family Medicine
DX: R07.2 Precordial pain (principal)
CPT/HCPCS: 93017

== ENCOUNTER 2025-02-11 01:54 | Outpatient (CLI) | payer BC, SELFPAY ==
--- NOTE | 2025-02-11 10:14 | W.NUTRFU ---
Date of service: 02/11/25 Time of Service: 09:00 Nutrition Note NOTE: Ed referred to today's nutrition visit for guidance with weight loss. Ed also has some other chronic conditions on his problem list which are caused or exacerbated by excess adiposity - HTN, hyperglycemia (A1C in prediabetes range of 6.1% last April), steatosis of the liver. Lives at home with his and grandson. 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 Suffers from arthritis and other chronic pain (hx of traumatic leg break/crush). Finds exercise very difficult with this barrier but did enjoy hiking in years past. Does not take any nutrition supplements currently. Will take magnesium occasionally to help with muscle pain and will take zinc if feeling cold/virus coming on. Has Rx for statin - does not take this. NKFA and rates himself a 6/7 on scale of 1-10 with 1 being pickiest. He is good at eating regular meals - is consistent with 3 meals per day - might have an evening snack of peanut butter and apple but also might grab a few soft randy chip cookies. We reviewed a rundown of some of his baseline menu choices with breakfast probably being the most repetitious with food choices. Overall, would assess his current dietary pattern as lower in protein than would be optimal for weight loss, and low in fiber. We discussed keeping many of his food choices but ensuring grain products be at least 3g fiber or more per serving and would benefit from more ns veggies, legumes and berries for carb choices. Also suggested goal of increasing protein with min kcals by including scoop of whey protein isolate and scoop of collagen to his routine daily, prefeerably in the morning soon after waking. Gave yoanna sample menus based on 1900 kcals, 190g total carbs, 142g protein, 63g fat, with at least 30g fiber and <40g added sugars. He will incorporate some of the advice we discusses regarding upping his protein and fiber while staying under 1900kcals Ed has my contact info should he desire follow up or have any more questions. I did recommend vitamin D throughout the year - 5,000IU december through july and 1999ma through december Time Spent in Nutritional Counseling and Treatment: min
== END 2025-02-11 01:55 | disposition home or self-care (01) ==
LOC: DS 01:54
PROVIDERS: PCP Family Medicine; Visit Provider Dietitian, Registered
DX: E66.812 Obesity, class 2; Z68.36 Body mass index [BMI] 36.0-36.9, adult
CPT/HCPCS: 00123; 97802